=== PATIENT | female | born 1955 | race Caucasian/White ===

== ENCOUNTER 2022-09-10 10:59 | Outpatient (CLI) | payer MEDICARE, MEDICAID ==
[2022-09-10 11:51] LABS: #Eosinphils 0.2 10x3/uL (0.0-0.5); #Monocytes 0.4 10x3/uL (0.0-1.1); #Neutrophils 3.3 10x3/uL (1.5-8.4); %Basophils 0.4 % (0.0-2.0); %Eosinophils 2.9 % (0.0-6.0); %Lymphocytes 29.3 % (18.0-47.0); %Monocytes 7.3 % (0.0-10.0); %Neutrophils 59.9 % (40.0-75.0); Hemoglobin 13.6 g/dL (12.0-15.5); Mean Corpuscular HGB CONC 33.1 g/dL (32.0-36.0); Mean Corpuscular Hemoglobin 33.1 pg (27.0-33.0); Mean Platelet Volume 9.8 fl (7.4-10.4); Platelet Count 263 10x3/uL (150-450); RBC Distribution Width 12.2 % (11.5-14.5); Red Blood Cell (RBC) Count 4.11 10x6/uL (3.90-5.03); White Blood Cell (WBC) Count 5.5 10x3/uL (3.5-10.5)
[2022-09-10 12:07] LABS: Anion Gap 13 mmol/L (10-20); BUN (Urea Nitrogen) 10 mg/dL (9.8-20.1); Calc. Creatinine Clearance 0 mL/min (70-130); Calcium 9.4 mg/dL (7.8-10.44); Carbon Dioxide 26 mmol/L (23-31); Chloride 104 mmol/L (98-107); Estimated GFR 81; Glucose 93 mg/dL (80-115); Potassium 4.3 mmol/L (3.5-5.1); Sodium 139 mmol/L (136-145)
[2022-09-10 12:10] LABS: INR-International Normal Ratio 0.9; Prothrombin Time 10.3 sec (9.5-12.1)
== END 2022-09-10 11:00 | disposition home or self-care (01) ==
LOC: LABBT 10:59
PROVIDERS: ATTEND Orthopaedic Surgery
DX: Z01.818 Encounter for other preprocedural examination (principal); M87.051 Idiopathic aseptic necrosis of right femur
CPT/HCPCS: 80048; 85025; 85610; 87081; 93005; 93010

== ENCOUNTER 2022-09-16 08:41 | Observation (INO) | payer MEDICARE, MEDICAID ==
[2022-09-16] MEDS ORDERED: Sodium Chloride 0.9% 100 ML ONE ×2 (09:27→09:53)
[2022-09-16] MEDS ORDERED: Tranexamic Acid 1,000 MG/10 ML VIAL ONE (09:27)
[2022-09-16] MEDS ORDERED: Vancomycin 1 GM/200 ML (FROZEN) BAG ONE (09:27)
[2022-09-16] MEDS ORDERED: CEFAZOLIN 2 GM VIAL ONE (09:53)
[2022-09-16] MEDS ORDERED: Midazolam HCl 2 mg/2 ml Vial ONE (09:57)
[2022-09-16] MEDS ORDERED: FENTANYL 50 MCG/ML 1 ML VIAL ONE ×5 (09:57→14:43)
[2022-09-16] MEDS ORDERED: Bupivacaine PF 0.5% 30 ML VIAL ONE ×2 (09:58→10:16)
[2022-09-16] MEDS ORDERED: Propofol 1,000 MG/100 ML VIAL IV ONE (10:21)
[2022-09-16] MEDS ORDERED: Bupivacaine HCl 0.5%/Epinephrine 1:200,000/PF 30 ml Vial ONE (10:39)
[2022-09-16] MEDS ORDERED: Albuterol HFA (OR) 200 PUFF INH ONE ×2 (10:39→10:52)
[2022-09-16] MEDS ORDERED: Zolpidem Tartrate 5 MG TAB PO PRN (10:44)
[2022-09-16] MEDS ORDERED: Acetaminophen 325 MG TAB PO PRN (10:44)
[2022-09-16] MEDS ORDERED: HYDROcodone/Acetaminophen 10/325 mg Tablet PO PRN (10:44)
[2022-09-16] MEDS ORDERED: Ondansetron PF 4 MG/2 ML Vial IVP PRN (10:44)
[2022-09-16] MEDS ORDERED: diphenhydrAMINE 25 MG CAP PO PRN (10:44)
[2022-09-16] MEDS ORDERED: Promethazine HCl 25 MG/ML VIAL IM PRN ×2 (10:44→12:05)
[2022-09-16] MEDS ORDERED: Benzonatate 100 MG CAP PO PRN (10:46)
[2022-09-16] MEDS ORDERED: hydrOXYzine 25 MG TAB PO PRN (10:46)
[2022-09-16] MEDS ORDERED: Fioricet 325/50/40 mg Tablet PO PRN (10:46)
[2022-09-16] MEDS ORDERED: Ipratropium/Albuterol 3 ML NEB NEB PRN (10:46)
[2022-09-16] MEDS ORDERED: Ipratropium/Albuterol 3 ML NEB ONE (10:51)
[2022-09-16] MEDS ORDERED: tiZANidine HCl 4 MG TAB PO PRN (11:05)
[2022-09-16] MEDS ORDERED: Ondansetron HCl/PF 4 MG/2 ML Vial IVP PRN (12:05)
[2022-09-16] MEDS ORDERED: Ondansetron PF 4 MG/2 ML Vial ONE (13:03)
[2022-09-16] MEDS ORDERED: Ketorolac Tromethamine 30 MG/ML VIAL ONE (13:26)
[2022-09-16] MEDS: Ketorolac Tromethamine 30 MG/ML VIAL IVP SCH ×2 (13:28→21:24)
[2022-09-16] MEDS: Sodium Chloride 0.9% 1,000 ML IV SCH ×2 (13:29→21:26)
[2022-09-16] MEDS: ALPRAZolam 1 MG TAB PO SCH ×2 (15:15→21:24)
[2022-09-16] MEDS: HYDROcodone/Acetaminophen 10/325 mg Tablet PO PRN ×2 (17:17→21:24)
[2022-09-16] MEDS: CEFAZOLIN 2 GM in Sodium Chloride 0.9% 100 ML IVPB SCH (17:18)
[2022-09-16] MEDS: FENTANYL 50 MCG/ML 1 ML VIAL SLOW IVP PRN (18:46)
[2022-09-16] MEDS: Aspirin 81 mg Enteric Coated Tablet PO SCH (21:24)
[2022-09-16] MEDS: Gabapentin 300 MG CAP PO SCH (21:24)
[2022-09-16] MEDS: Ferrous Gluconate 324 MG TAB PO SCH (21:25)
[2022-09-16] MEDS: Senokot S 8.6-50 MG TAB PO SCH (21:26)
[2022-09-17] MEDS: CEFAZOLIN 2 GM in Sodium Chloride 0.9% 100 ML IVPB SCH (01:35)
[2022-09-17] MEDS: Mometasone 200 MCG/Formoterol 5 MCG 120 PUFF INHALER INH SCH ×2 (01:44→06:44)
[2022-09-17] MEDS: HYDROcodone/Acetaminophen 10/325 mg Tablet PO PRN ×2 (02:57→12:06)
[2022-09-17] MEDS: Sodium Chloride 0.9% 1,000 ML IV SCH (05:31)
[2022-09-17] MEDS: Ketorolac Tromethamine 30 MG/ML VIAL IVP SCH (05:35)
[2022-09-17 06:33] LABS: Hemoglobin 12.7 g/dL (12.0-16.0); Mean Corpuscular HGB CONC 32.4 g/dL (32.0-36.0); Mean Corpuscular Hemoglobin 34.1 pg (27.0-31.0); Mean Platelet Volume 7.6 fL (7.4-10.4); Platelet Count 256 10x3/uL (130-400); RBC Distribution Width 11.8 % (11.5-14.5); Red Blood Cell (RBC) Count 3.73 mill/uL (4.20-5.40); White Blood Cell (WBC) Count 6.3 10x3/uL (4.8-10.8)
[2022-09-17] MEDS ORDERED: predniSONE 5 MG TAB PO SCH (08:00)
[2022-09-17] MEDS: Ferrous Gluconate 324 MG TAB PO SCH (08:22)
[2022-09-17] MEDS: ALPRAZolam 1 MG TAB PO SCH (08:32)
[2022-09-17] MEDS: Senokot S 8.6-50 MG TAB PO SCH (08:33)
[2022-09-17] MEDS: Gabapentin 300 MG CAP PO SCH (08:33)
[2022-09-17] MEDS: Aspirin 81 mg Enteric Coated Tablet PO SCH (08:33)
[2022-09-17 08:45] VITALS: BP 94/58; TEMP 97.7
[2022-09-17] MEDS ORDERED: Multivitamin W/ Minerals 1 TAB PO SCH (09:00)
[2022-09-17] MEDS ORDERED: Sertraline 100 MG TAB PO SCH (09:00)
[2022-09-17] MEDS: FENTANYL 50 MCG/ML 1 ML VIAL SLOW IVP PRN (10:50)
== END 2022-09-17 12:20 | disposition home health service (06) ==
LOC: SDC 08:41 → SURG A 14:55
PROVIDERS: ADMIT Orthopaedic Surgery; ATTEND Orthopaedic Surgery
PROC: 0SR902A Replacement of Right Hip Joint with Metal on Polyethylene Synthetic Substitute, Uncemented, Open Approach (ICD-10-PCS; principal; 2022-09-16)
DX: M87.051 Idiopathic aseptic necrosis of right femur (principal); S72.091A Other fracture of head and neck of right femur, initial encounter for closed fracture; M24.151 Other articular cartilage disorders, right hip; S73.191A Other sprain of right hip, initial encounter; J44.9 Chronic obstructive pulmonary disease, unspecified; Z87.891 Personal history of nicotine dependence; Z79.52 Long term (current) use of systemic steroids; Z79.83 Long term (current) use of bisphosphonates; Z79.899 Other long term (current) drug therapy; Z88.5 Allergy status to narcotic agent; Z96.642 Presence of left artificial hip joint
CPT/HCPCS: 27130; 73502; 85027; 87070; 87075; 87205; 97110; 97116 ×2; 97530; 97535; J3010 ×2; J3370; 36415; 96365; 96375; 96376; C1776; G0378; J1885; J2250; J2405; J2704; J3490; J7620; S0020